=== PATIENT | male | born 1980 | race African-American/Black ===

== ENCOUNTER 2022-01-21 08:51 | Emergency (ER) | payer OTHER ==
[~2022-01-21] VITALS: Ht 177.8 cm; Wt 95.3 kg
[2022-01-21 09:45] LABS: HEMATOCRIT 51.7 % (36.7-47.1); MEAN CORPUSCULAR HEMOGLOBIN 30.4 uug (23.8-33.4); MEAN CORPUSCULAR VOLUME 88.5 fL (73.0-96.2); PLATELET COUNT (AUTO) 250 K/uL (152-348)
--- NOTE | 2022-01-21 09:50 | NUR ---
Pt refused EKG, slapped my hand stating"It's too cold". Dr laird made aware.
[2022-01-21 09:55] LABS: CARBON DIOXIDE 31 mmol/L (21-32); CHLORIDE 106 mmol/L (98-107); CREATININE 1.3 mg/dL (0.6-1.3); GLUCOSE 81 mg/dL (74-106); POTASSIUM 4.2 mmol/L (3.5-5.1); UREA NITROGEN, BLOOD 16 mg/dL (7-18)
--- NOTE | 2022-01-21 10:03 | NUR ---
Pt out of ER for CT scan.
[2022-01-21 10:04] LABS: ALANINE AMINOTRANSFERASE 36 U/L (16-63); ALKALINE PHOSPHATASE 60 U/L (50-136); ASPARTATE AMINOTRANSFERASE 28 U/L (15-37); BILIRUBIN,DIRECT 0.1 mg/dL (0.0-0.2); BILIRUBIN,TOTAL 0.5 mg/dL (0.2-1.0); TOTAL PROTEIN, SERUM 7.2 g/dL (6.4-8.2)
[2022-01-21 10:12] LABS: ACETAMINOPHEN < 2.0 ug/mL (10-30)
[2022-01-21 10:21] LABS: THYROID STIMULATING HORMONE 1.452 mIU/mL (0.358-3.740)
[2022-01-21 10:28] LABS: ETHANOL < 3 MG/DL (0-0)
--- NOTE | 2022-01-21 10:38 | NUR ---
Pt back from Ct scan, at the bedside.
--- NOTE | 2022-01-21 14:33 | NUR ---
Pt pulled IV line out by accident.
--- NOTE | 2022-01-21 14:33 | NUR ---
Patient is resting comfortably in bed with eyes closed, NAD noted.
--- NOTE | 2022-01-21 19:26 | NUR ---
pt laying in bed only briefly wakes up when called. pt's at bedside. I informed the pt we need a urine sample.
--- NOTE | 2022-01-21 20:05 | NUR ---
pt is awake alert oriented able to stand. converse appropriate and provided a urine sample.
[2022-01-21 20:16] LABS: *BILIRUBIN,URIN NEGATIVE (NEGATIVE); *BLOOD, URINE NEGATIVE (NEGATIVE); *CLARITY,URINE CLEAR (CLEAR); *COLOR,URINE YELLOW (YELLOW); *KETONES,URINE NEGATIVE (NEGATIVE); *UROBILINOGEN,URINE 0.2 E.U./dl (NORMAL); LEUKOCYTE ESTERASE ,URINE NEGATIVE (NEGATIVE); NITRITE, URINE NEGATIVE (NEGATIVE); PH,URINE 5.5 (5.0-8.0); UGLUCOSE NEGATIVE (NEGATIVE)
--- NOTE | 2022-01-21 21:33 | NUR ---
Dr. Teague at bedside speaking with pt and his .
--- NOTE | 2022-01-21 22:19 | NUR ---
call to security as pt and the of the pt does not want to leave. the pt has been discharged and was told three times.
--- NOTE | 2022-01-21 22:32 | NUR ---
Patient discharged to home in stable condition. Written and verbal after care instructions given. Patient verbalizes understanding of instructions. Stressed follow up or return to ER for worsening s/s. security was called and escorted the pt and his out of the er as the pt was refusing to leave the er.
--- NOTE | 2022-01-21 22:33 | NUR ---
in and out cath was not performed as pt was able to urinate. previous ekg was not performed as the pt previously refused.
[2022-01-21 22:34] VITALS: BP 120/80
[2022-01-22 03:17] LABS: *AMPHETAMINE, URINE NEGATIVE (NEGATIVE)
[2022-01-22 03:18] LABS: *CANNABINOID, URINE NEGATIVE (NEGATIVE); *COCCAINE, URINE POSITIVE (NEGATIVE); *OPIATE, URINE NEGATIVE (NEGATIVE); *PHENCYCLIDINE SCREEN,URINE NEGATIVE (NEGATIVE)
== END 2022-01-21 22:34 | disposition home or self-care (01) ==
LOC: ER 08:53
DX: R40.0 Somnolence (principal); R91.8 Other nonspecific abnormal finding of lung field
CPT/HCPCS: 36415; 70450; 71045; 71250; 82533; 83605; 84443; 84484; 85025; 85730; 87040; 87086; 93005; G0480; J7040